=== PATIENT | female | born 1960 | race Caucasian/White ===

== ENCOUNTER 2021-12-17 20:02 | Emergency (ER) | payer BC ==
[~2021-12-17] VITALS: Ht 160 cm; Wt 63.6 kg
[2021-12-17 20:06] VITALS: TEMP 97.2
[2021-12-17] MEDS ORDERED: SYNTHROID0.088 MG/T PO (20:19)
[2021-12-17] MEDS ORDERED: PROVENTIL0.09 MG/A1 PO (20:20)
[2021-12-17] MEDS ORDERED: SYNTHROID0.1 MG/TAB PO (20:21)
[2021-12-17] MEDS ORDERED: LIPITOR20 MG PO (20:22)
[2021-12-17 20:38] LABS: BASO # 0.1 K/mm3 (0.0-0.2); BASO % 0.7 % (0.0-2.0); EOS # 0.2 K/mm3 (0.0-0.7); EOS % 1.4 % (0.0-4.0); GRAN # 9.6 K/mm3 (1.4-6.5); GRAN % 70.6 % (42.2-75.2); HEMOGLOBIN 13.2 g/dl (12.5-16.0); LYMPH # 2.7 K/mm3 (1.2-3.4); LYMPH % 20.1 % (20.0-51.0); MEAN CELL VOLUME 87 fl (80.0-100.0); MEAN CORPUSCULAR HEMOGLOBIN 29 pg (27-31); MEAN CORPUSCULAR HGB CONC 33 g/dl (33.0-37.0); MEAN PLATELET VOLUME 11.6 fl (7.4-10.4); MONO # 0.9 K/mm3 (0.1-0.6); MONO % 6.7 % (1.7-9.3); PLATELET COUNT 271 K/mm3 (130-400); REDCELL DISTRIBUTION WIDTH-CV 14.2 % (11.5-14.5)
[2021-12-17 20:57] LABS: ALANINE AMINOTRANSFERASE 44 U/L (0-55); ALBUMIN 3.6 gm/dL (3.4-4.8); ALKALINE PHOSPHATASE 113 U/L (40-150); ANION GAP 11 mmol/L (7-16); AST,SGOT 28 U/L (5-34); BILIRUBIN,TOTAL 0.2 mg/dL (0.2-1.2); BLOOD UREA NITROGEN 18 mg/dL (10-20); CALCIUM 9.6 mg/dL (8.4-10.2); CARBON DIOXIDE 24 mmol/L (23-31); CHLORIDE 108 mmol/L (98-107); CREATININE, serum 0.81 mg/dL (0.57-1.11); GLUCOSE 113 mg/dL (70-99); SODIUM 143 mmol/L (136-145)
[2021-12-17 21:05] LABS: TROPONIN-I < 0.010 ng/mL (0.00-0.033)
[2021-12-17] MEDS ORDERED: PREDNISONE20 MG PO (21:31)
[2021-12-17 21:40] VITALS: BP 130/86; PULSE 84
== END 2021-12-17 21:44 | disposition home or self-care (01) ==
LOC: COL.ER 20:02 → EDSEX 20:04 → COL.ER 21:44
PROVIDERS: Emergency Medicine
DX: J45.901 Unspecified asthma with (acute) exacerbation (principal); D72.829 Elevated white blood cell count, unspecified; Z20.822 Contact with and (suspected) exposure to COVID-19
CPT/HCPCS: J7512